=== PATIENT | female | born 1970 | race Caucasian/White ===

== ENCOUNTER 2025-03-11 11:51 | Observation (INO) | payer OTHER, SELFPAY ==
--- NOTE | ~2025-03-11 | CT_ITS ---
EXAMINATION: CT ABDOMEN PELVIS WITH IV CONTRAST HISTORY: nausea vomiting, diarrhea COMPARISON: There are no prior studies for available comparison. TECHNIQUE: CT scan of the abdomen and pelvis was performed following administration of 85 mL Omnipaque 350 using standard departmental protocol. Coronal and sagittal reformatted images were generated and reviewed. Oral contrast material was not administered at the request of the referring physician. This CT exam was performed with one or more of the following dose reduction techniques: automated exposure control, adjustment of the mA and/or kV according to patient size, use of iterative reconstruction technique. DLP: 328 mGy-cm FINDINGS: LOWER CHEST: The visualized lung bases are clear. There is no pleural effusion. CARDIOVASCULATURE: The heart is normal in size. There is no pericardial effusion. LIVER: The liver is normal in size and contour. There is periportal edema which is a nonspecific finding. No liver mass is identified. The hepatic and portal veins are patent. GALLBLADDER / BILE DUCTS: There is pericholecystic fluid. No calcified gallstones are identified.. There is no intra or extrahepatic biliary ductal dilatation. SPLEEN: The spleen is normal in size. No focal splenic lesion is identified. PANCREAS: The pancreas is unremarkable in appearance. ADRENAL GLANDS: Within normal limits. KIDNEYS/RETROPERITONEUM: No renal calculi are identified. There is no hydronephrosis. No renal masses are identified. LYMPH NODES: No abdominal or pelvic lymphadenopathy. VASCULATURE: The abdominal aorta is normal in caliber. MESENTERY/PERITONEUM: No free fluid. No masses. There is no free intraperitoneal gas. STOMACH: The stomach is collapsed, limiting evaluation. SMALL BOWEL: The small bowel is normal in caliber. COLON: The colon is completely collapsed, limiting evaluation. APPENDIX: Normal. URINARY BLADDER/PELVIC ORGANS: The urinary bladder is unremarkable. The uterus and ovaries are unremarkable. BONES / SOFT TISSUES: No suspicious bony or soft tissue abnormalities. CT/CT abdomen pelvis w IV con IMPRESSION: 1.Pericholecystic fluid and periportal edema. No calcified gallstones are identified. If there is clinical concern for acute cholecystitis, ultrasound could be performed. 2. The colon is completely collapsed, limiting evaluation. It is therefore difficult to exclude colitis. Electronically signed by: Howard Thao MD 03/11/2025 03:22 PM EST RP
--- NOTE | ~2025-03-11 | US_ITS ---
EXAMINATION: US ABDOMEN LIMITED CLINICAL INFORMATION: Elevated liver enzymes.. COMPARISON: Correlated to CT dated March 11, 2025. TECHNIQUE: Real-time ultrasound of the right upper quadrant abdomen using grayscale technique. FINDINGS: Limited examination. Gallbladder is contracted. No gross intraluminal abnormality. Gallbladder wall measures 8 mm. Trace of pericholecystic fluid. Common bile duct measures 3 mm. Liver measures 14 cm. coarse echotexture. Trace amount of ascites. US/US abdomen limited IMPRESSION: Concerning hepatocellular disease versus hepatitis resulting in all bladder wall thickening. Acalculous cholecystitis seems less likely. Ascites, small volume. Electronically signed by: Ty Tracey MD 03/12/2025 07:32 AM EST
--- NOTE | 2025-03-11 12:34 | ED.NAVMDI ---
HPI - Nausea/Vomiting/Diarrhea General Chief complaint: General Medical Stated complaint: vomiting Time Seen by Provider: 03/11/25 12:41 Source: patient Mode of arrival: ambulatory Limitations: no limitations History of Present Illness ED Provider: Dr. Jasmine [facility] Narrative: 54-year-old female presented hospital today for evaluation of nausea vomiting since 02:00. She has been having nausea vomiting and diarrhea. Her family is sick. Son recently diagnosed with COVID. She has no abdominal pain. However she has more than 10 at bedside of emesis since 02:00 last night. She is feels weak. Related Data Home Medications ?Medication ?Instructions ?Recorded ?Confirmed albuterol sulfate 90 mcg/actuation 2 puff inhalation Q4H PRN wheezing 03/11/25 03/11/25 aerosol inhaler (Ventolin HFA) diclofenac sodium 75 mg 75 mg PO BID PRN Pain 03/11/25 03/11/25 tablet,delayed release multivitamin 1 tab PO DAILY 03/11/25 03/11/25 Allergies Allergy/AdvReac Type Severity Reaction Status Date / Time No Known Allergies Allergy Verified 03/11/25 12:40 Review of Systems Review of Systems: Pertinent review of systems as mentioned in HPI. All other system otherwise negative. FOR[facility]LY [facility] Past Medical History [facility] Narrative: Medical history as mentioned in [facility] Social History Social History Patient Tobacco Use Status: Never used Tobacco Smoked in Last 30 Days: Yes Use of substances other than those prescribed or required for medical reasons: No Advance Directives: No Advance Directives Information Provided: Yes Physical Exam Exam: Exam: General: Pleasant, no distress, interacting appropriately Head: Normacephalic, atraumatic ENT: oral mucosa dry, neck supple, no tracheal deviation Cardiovascular: Bradycardia rate, regular rhythm, no murmurs, rubbing, gallops Respiratory: CTAB, no wheeze, rales, rhonchi Gastrointestinal: Soft, non distended, non tender, non guarding Extremities: No limb pain or swelling, no calf tenderness Neurological: Awake and alert, no facial droop noted Skin: Warm and dry Psychiatric: Appropriate mood and thoughts Vital Signs: Vital Signs: Last Vital Signs Temp 99.7 F 03/11/25 20:21 Pulse 54 03/11/25 20:21 Resp 16 03/11/25 20:21 BP 105/52 L 12/11/25 20:21 Pulse Ox 96 03/11/25 20:21 O2 Del Method Room Air 03/11/25 20:21 BMI result Body Mass Index 19.0 Course Course Course Narrative: This is an RME: Additional HPI, ROS, PE not included below will be deferred to primary provider. RME assessment and note performed by: Nanci Hercules PA-C This is [id number], with hx of asthma, who presents to the ER with complaints of nausea, vomiting. Had diarrhea 2 days ago, had cheeseburger drier and grinder tender last night and developed her symptoms early this morning. Patient found to be bradycardic, patient brought back. Plan: Labs, ekg Medications Administered Generic Name Dose Route Start Last Admin Trade Name Freq PRN Reason Stop Dose Admin Lactated Ringer's 1,000 mls @ 100 mls/hr 03/11/25 18:00 03/11/25 21:10 Lr IVCONT 100 mls/hr .Q10H HANH Administration Discontinued Medications Generic Name Dose Route Start Last Admin Trade Name Freq PRN Reason Stop Dose Admin Lactated Ringer's 1,000 mls @ 999 mls/hr 03/11/25 12:45 03/11/25 17:30 Lr IV 03/11/25 13:45 Infused .Q1H1M HANH Infusion Lactated Ringer's 1,000 mls @ 999 mls/hr 03/11/25 13:45 03/11/25 17:05 Lr IV 03/11/25 14:45 Infused .Q1H1M HANH Infusion Lactated Ringer's 1,000 mls @ 999 mls/hr 03/11/25 14:00 03/11/25 17:00 Lr IV 03/11/25 15:00 Infused .Q1H1M HANH Infusion Magnesium Sulfate 2 gm in 50 mls @ 50 mls/hr 03/11/25 13:47 03/11/25 15:38 Magnesium Sulfate/H2o IV 03/11/25 14:46 Infused ONCE ONE Infusion Metronidazole 500 mg in 100 mls @ 100 mls/hr 03/11/25 14:06 03/11/25 17:00 Flagyl IV 03/11/25 15:05 Infused ONCE ONE Infusion Iohexol 100 ml 03/11/25 14:50 03/11/25 14:50 Iohexol 350 Mg/Ml 100 Ml Infus..Btl IV 03/11/25 14:51 85 ml ONCE ONE Administration Metoclopramide HCl 5 mg 03/11/25 13:47 03/11/25 14:17 Metoclopramide Hcl 10 Mg/2 Ml Vial IV 03/11/25 13:48 5 mg ONCE ONE Administration Ondansetron HCl 4 mg 03/11/25 12:41 03/11/25 12:44 Ondansetron Hcl 4 Mg/2 Ml Vial IVPUSH 03/11/25 12:42 4 mg ONCE ONE Administration Medical Decision Making Medical Decision Making [facility] Narrative: 54-year-old female presented hospital today for nausea vomiting and diarrhea. At triage she was noted to have heart rate in the 36 use brought back. To the ER. Her heart rates between 40 and 60 on evaluation blood pressure is stable. Patient does appear to be nauseous. IV access obtained. Zofran given, bolus IV fluid be initiated. We will obtain lab work to assess for any signs of electrolyte abnormality. I did obtain EKG on patient. Patient does have signs of sinus bradycardia no sign of heart block. Troponin obtained, electrolytes will be assess. Lactic acid will be obtained as well. Viral swab will be obtained on the patient as well. Patient has a white count of 12.8. Left shift neutrophils 91.4. Patient's lactic acid is elevated at 3.1. Does have elevated bilirubin at 2.4. However she has no right upper quadrant abdominal pain no epigastric abdominal pain on exam. I do not think this is cholecystitis. Likely secondary to dehydration. Patient will be receiving additional bolus IV fluid here. UA did not show any signs of UTI. Viral swab negative for COVID flu RSV. She stated her nausea has improved. Given her laboratory findings we will obtain a CTA abdomen and pelvis. I have low suspicion for anything surgical. I think this is likely gastroenteritis versus colitis. Discussed with General Surgeon Dr. Barriga. Does not think his is cholecystitis as well. Will continue to monitor patient. CT imaging shows fluid around the gallbladder. However she has no right upper quadrant tenderness. Her lactic acid remains elevated at this time. I did give prophylactically IV Flagyl for in. Antibiotic coverage. We will plan to admit the patient has to hospital for severe dehydration and observation. Differential Diagnosis Differential Diagnoses: The differential diagnosis associated with the presentation includes Flu COVID, gastroenteritis, dehydration, nausea vomiting Lab Data MDM Lab Attestation statement: I reviewed the patient's lab results. 03/11/25 13:00 03/11/25 13:00 Labs: Lab Results 03/11/25 03/11/25 03/11/25 Range/Units 13:00 13:01 13:01 WBC 12.8 H (4.8-10.8) X10*3/uL RBC 4.20 (4.20-5.50) X10*6/uL Hgb 12.9 (12.0-16.0) g/dl Hct 38.7 (37.0-47.0) % MCV 92.1 (80.0-98.0) fL MCH 30.7 (27.0-33.0) pg MCHC 33.3 (31.0-35.0) g/dl RDW 13.2 (11.0-16.0) % Plt Count 189 (160-400) X10*3/uL MPV 10.2 (9.4-12.3) fL Immature Gran % (Auto) 0.4 (0.0-0.4) % Neut % (Auto) 91.4 H (45-73) % Lymph % (Auto) 6.3 L (20-40) % [place] % (Auto) 1.6 L (2-11) % Eos % (Auto) 0.1 (0-4) % Baso % (Auto) 0.2 (0-2) % Lymph # (Auto) 0.8 L (1.2-4.9) X10*3/uL [place] # (Auto) 0.2 (0.1-1.2) X10*3/uL Eos # (Auto) 0.0 (0.0-0.4) X10*3/uL Baso # (Auto) 0.0 (0.0-0.2) X10*3/uL Abs Immat Gran (auto) 0.05 H (0.00-0.03) X10*3/uL Absolute Neuts (auto) 11.7 H (2.0-8.3) x10*3/uL Absolute Nucleated RBC 0.000 (0.0-0.012) X10*3/uL Nucleated RBC % (auto) 0.0 (0.0-0.2) /100WBC Smear Tech's Comments VERIFIED Hold Purple Top SEE NOTE Hold Blue Top SEE NOTE SEE NOTE Sodium 140 (135-145) mmol/L Potassium 4.3 (3.3-5.1) mmol/L Chloride 109 H (96-108) mmol/L Carbon Dioxide 23 (22-29) mmol/L Anion Gap 12 (12-20) BUN 14 (9-16) mg/dL Creatinine 0.66 (0.5-1.4) mg/dL Estim Creat Clear Calc 81.0 Estimated GFR > 60 Random Glucose 157 H (60-115) mg/dL Lactic Acid 3.1 H* (0.5-2.0) mmol/L Lactic Acid F/U @ 2Hr (0.5-2.0) mmol/L Lactic Acid F/U @ 4Hr (0.5-2.0) mmol/L Calcium 9.4 (8.4-10.2) mg/dL Magnesium 1.5 L (1.6-2.6) mg/dL Total Bilirubin 2.4 H (0.0-1.0) mg/dL Direct Bilirubin 0.7 H (0.0-0.5) mg/dL AST 39 H (5-31) U/L ALT 23 (0-31) U/L Alkaline Phosphatase 60 (39-117) U/L Troponin I High Sens 3.4 (<3.5-17.0) ng/L Total Protein 7.2 (6.5-8.0) g/dL Albumin 5.1 H (3.5-5.0) g/dL Lipase 12 (8-78) U/L Urine Color Urine Appearance Urine pH (5.0-9.0) Ur Specific [place] (1.005-1.025) Urine Protein (Neg-Trace) mg/dL Urine Glucose (UA) (Negative) mg/dL Urine Ketones (Negative) mg/dL Urine Blood (Negative) Urine Nitrite (Negative) Ur Leukocyte Esterase (Negative) Urine RBC (0-2) /HPF Urine WBC (0-5) /HPF Ur Squamous Epith Cells (0-2) /HPF Urine Bacteria (None Seen) Hyaline Casts (0-2) /LPF Influenza Type A (PCR) NEGATIVE (Negative) Influenza Type B (PCR) NEGATIVE (Negative) RSV RNA Qual (PCR) NEGATIVE (Negative) SARS-CoV-2 RNA (RT-PCR) NEGATIVE (Negative) 03/11/25 03/11/25 03/11/25 Range/Units 13:49 15:14 17:40 WBC (4.8-10.8) X10*3/uL RBC (4.20-5.50) X10*6/uL Hgb (12.0-16.0) g/dl Hct (37.0-47.0) % MCV (80.0-98.0) fL MCH (27.0-33.0) pg MCHC (31.0-35.0) g/dl RDW (11.0-16.0) % Plt Count (160-400) X10*3/uL MPV (9.4-12.3) fL Immature Gran % (Auto) (0.0-0.4) % Neut % (Auto) (45-73) % Lymph % (Auto) (20-40) % [place] % (Auto) (2-11) % Eos % (Auto) (0-4) % Baso % (Auto) (0-2) % Lymph # (Auto) (1.2-4.9) X10*3/uL [place] # (Auto) (0.1-1.2) X10*3/uL Eos # (Auto) (0.0-0.4) X10*3/uL Baso # (Auto) (0.0-0.2) X10*3/uL Abs Immat Gran (auto) (0.00-0.03) X10*3/uL Absolute Neuts (auto) (2.0-8.3) x10*3/uL Absolute Nucleated RBC (0.0-0.012) X10*3/uL Nucleated RBC % (auto) (0.0-0.2) /100WBC Smear Tech's Comments Hold Purple Top Hold Blue Top Sodium (135-145) mmol/L Potassium (3.3-5.1) mmol/L Chloride (96-108) mmol/L Carbon Dioxide (22-29) mmol/L Anion Gap (12-20) BUN (9-16) mg/dL Creatinine (0.5-1.4) mg/dL Estim Creat Clear Calc Estimated GFR Random Glucose (60-115) mg/dL Lactic Acid (0.5-2.0) mmol/L Lactic Acid F/U @ 2Hr 3.0 H* (0.5-2.0) mmol/L Lactic Acid F/U @ 4Hr 1.7 (0.5-2.0) mmol/L Calcium (8.4-10.2) mg/dL Magnesium (1.6-2.6) mg/dL Total Bilirubin (0.0-1.0) mg/dL Direct Bilirubin (0.0-0.5) mg/dL AST (5-31) U/L ALT (0-31) U/L Alkaline Phosphatase (39-117) U/L Troponin I High Sens (<3.5-17.0) ng/L Total Protein (6.5-8.0) g/dL Albumin (3.5-5.0) g/dL Lipase (8-78) U/L Urine Color Yellow Urine Appearance Cloudy Urine pH >= 9.0 (5.0-9.0) Ur Specific [place] 1.020 (1.005-1.025) Urine Protein 30 (1+) H (Neg-Trace) mg/dL Urine Glucose (UA) Negative (Negative) mg/dL Urine Ketones 80 (Negative) mg/dL Urine Blood Negative (Negative) Urine Nitrite Negative (Negative) Ur Leukocyte Esterase Negative (Negative) Urine RBC 0-2 (0-2) /HPF Urine WBC 0-5 (0-5) /HPF Ur Squamous Epith Cells 0-2 (0-2) /HPF Urine Bacteria None Seen (None Seen) Hyaline Casts 0-2 (0-2) /LPF Influenza Type A (PCR) (Negative) Influenza Type B (PCR) (Negative) RSV RNA Qual (PCR) (Negative) SARS-CoV-2 RNA (RT-PCR) (Negative) Independent Interpretation I performed an independent interpretation of an: CT Scan Radiology Impression Discussion of test interpretation with radiology: I have reviewed the radiologist's reading. Critical Care Time Critical Care Time Critical Care Time: Yes Total Critical Care Time: 40 Attestation: Time is exclusive of separately billable procedures. Time includes: direct patient care, patient reassessment, coordination of patient care, interpretation of data (laboratory data, pulse oximetry, arterial blood gases and chest xrays), review of patient's medical records, medical consultation and documentation of patient care. Procedures excluded from critical care time: central intravenous line placement and electrocardiography. Discharge Plan Discharge Clinical Impression: Nausea and vomiting, Dehydration, severe Patient Disposition: Admitted As Inpatient Discharge Date/Time: 03/11/25 20:15
[2025-03-11 12:35] VITALS: BP 153/112; PULSE 36; RESP 20; TEMP 36.9; O2SAT 99; BMI 19.0
--- NOTE | 2025-03-11 12:41 | ECG_ITS ---
Test Reason : CP Blood Pressure : */* mmHG Vent. Rate : 44 BPM Atrial Rate : 44 BPM P-R Int : 124 ms QRS Dur : 82 ms QT Int : 498 ms P-R-T Axes : 76 79 83 degrees QTcB Int : 425 ms Marked sinus bradycardia Abnormal ECG No previous ECGs available Referred By: Nanci Hercules Electronically Signed By: JANE BERRY MD
--- NOTE | 2025-03-11 12:42 | PC.NURSE ---
Pt states she awoke at 0200 this am w/ n/v/d. Now here w/ symptomatic bradycardia
[2025-03-11] MEDS: Lactated Ringers 1,000 ML 999 ML IV ×3 (12:46→15:41)
[2025-03-11 13:08] LABS: Hematocrit 38.7 % (37.0-47.0); Hemoglobin 12.9 g/dl (12.0-16.0); Imm Gran Abs Auto 0.05 X10*3/uL (0.00-0.03); Imm Gran Pct Auto 0.4 % (0.0-0.4); Lymphocytes Absolute Auto 0.8 X10*3/uL (1.2-4.9); MANUAL DIFF FLAG SCAN; Mean Corpuscular HGB Conc 33.3 g/dl (31.0-35.0); Mean Corpuscular Hemoglobin 30.7 pg (27.0-33.0); Mean Corpuscular Volume 92.1 fL (80.0-98.0); NRBC Abs Auto 0.000 X10*3/uL (0.0-0.012); NRBC Pct Auto 0.0 /100WBC (0.0-0.2); Platelet Count 189 X10*3/uL (160-400); Red Blood Count 4.20 X10*6/uL (4.20-5.50); SCAN SMEAR FLAG 1; White Blood Count 12.8 X10*3/uL (4.8-10.8)
[2025-03-11 13:28] LABS: Alanine Aminotransferase 23 U/L (0-31); Albumin Level 5.1 g/dL (3.5-5.0); Alkaline Phosphatase 60 U/L (39-117); Anion Gap 12 (12-20); Aspartate Amino Transferase 39 U/L (5-31); Blood Urea Nitrogen 14 mg/dL (9-16); Calcium 9.4 mg/dL (8.4-10.2); Carbon Dioxide 23 mmol/L (22-29); Chloride 109 mmol/L (96-108); Creatinine Clr Calc Pharmacy 81.0; Estimated Glomerular Filt Rate > 60; Lipase 12 U/L (8-78); Magnesium 1.5 mg/dL (1.6-2.6); Potassium 4.3 mmol/L (3.3-5.1); Sodium 140 mmol/L (135-145); Total Protein 7.2 g/dL (6.5-8.0)
[2025-03-11 13:32] LABS: Troponin-I High Sensitivity 3.4 ng/L (<3.5-17.0)
[2025-03-11 13:55] LABS: Resp Syncy Virus RNA Qual PCR NEGATIVE (Negative); SARS COV2 PCR INHOUSE NEGATIVE (Negative)
[2025-03-11 13:58] LABS: Appearance Urine Cloudy; Glucose Urine UA Negative (Negative); PH >= 9.0 (5.0-9.0); Specific Gravity - Urine 1.020 (1.005-1.025); UMIC TRIGGER UACC YES
[2025-03-11 14:10] VITALS: BP 148/75; PULSE 44; RESP 12; TEMP 36.9; O2SAT 99
[2025-03-11] MEDS: Magnesium Sulfate/H2O 2 GM/50 ML PIGGYBACK IV (14:15)
[2025-03-11] MEDS: iohexoL 350 MG/ML 100 ML INFUS..BTL IV (14:50)
[2025-03-11 15:06] LABS: Reflex Lactate? Lactic Acid Added
[2025-03-11 15:36] LABS: ~Lactic Acid-LAB USE ONLY 3.0 mmol/L (0.5-2.0)
[2025-03-11] MEDS: metroNIDAZOLE/NS 500 MG/100 ML PIGGYBACK 100 MG IV (15:41)
[2025-03-11 17:17] LABS: Reflex Lactate? 2 Y
--- NOTE | 2025-03-11 17:54 | P.HPHOSP_ITS ---
History of Present Illness Date of Service: 03/11/25 Attending physician on admission: Gita Pulido Chief Complaint: nausea /vomiting 54 y/o F with no significant past medical history she came to the hospital because she is having nausea vomiting diarrhea 1 day duration-as per the patient she had multiple episodes of nausea vomiting as well as diarrhea since yesterday. She says that she was fine before that. She says that yesterday she ate double end production grinder, her symptoms started afterwards. Other family member also need ate it -no no family member is sick accept her. She said her son was recently had COVID 1-2 weeks back. She says her last bowel movement just before coming to the emergency room today. Denies any new complaint of chest pain or shortness of breath or abdominal pain or fever or chills. Denies any cough Denies any weakness or numbness. Lab imaging reviewed: Mild leukocytosis and elevated LFTs. CTA abdomen:1.Pericholecystic fluid and periportal edema. No calcified gallstones are identified. If there is clinical concern for acute cholecystitis, ultrasound could be performed. 2. The colon is completely collapsed, limiting evaluation. It is therefore difficult to exclude colitis. Review of Systems 2 Review of Systems: As above. Yes all other systems are reviewed and are negative PMFSH Social History Patient Tobacco Use Status: Never used Tobacco Smoked in Last 30 Days: Yes Use of substances other than those prescribed or required for medical reasons: No Advance Directives: No Advance Directives Information Provided: Yes Meds Allergies Allergy/AdvReac Type Severity Reaction Status Date / Time No Known Allergies Allergy Verified 03/11/25 12:40 Active Medications: Current Medications Lactated Ringer's (Lr) 1,000 mls @ 100 mls/hr IVCONT .Q10H HANH Physical Exam 2 Vital Signs and Narrative: Vital Signs: Last Vital Signs Temp 98.5 F 03/11/25 14:10 Pulse 44 L 03/11/25 14:10 Resp 12 03/11/25 14:10 BP 148/75 H 03/11/25 14:10 Pulse Ox 99 03/11/25 14:10 O2 Del Method Room Air 03/11/25 14:10 BMI result Body Mass Index 19.0 Appearance: Alert.? Oriented X3.? Feels weak and tired, cvs: rrr, [id number] , no murmur res: clear to auscultation ,no rhonchii or wheezing abd: no rebound or guarding ,nt, bs present. ext pulses present , no cyanosis . neuro: axo3 , nonfocal. Results Labs 03/11/25 13:00 03/11/25 13:00 Labs: Laboratory Results - last 24 hr 03/11/25 03/11/25 03/11/25 13:00 13:01 13:01 MCV 92.1 MCH 30.7 MCHC 33.3 RDW 13.2 Plt Count 189 MPV 10.2 Immature Gran % (Auto) 0.4 Neut % (Auto) 91.4 H Lymph % (Auto) 6.3 L [place] % (Auto) 1.6 L Eos % (Auto) 0.1 Baso % (Auto) 0.2 Lymph # (Auto) 0.8 L [place] # (Auto) 0.2 Eos # (Auto) 0.0 Baso # (Auto) 0.0 Abs Immat Gran (auto) 0.05 H Absolute Neuts (auto) 11.7 H Absolute Nucleated RBC 0.000 Nucleated RBC % (auto) 0.0 Smear Tech's Comments VERIFIED Hold Purple Top SEE NOTE Hold Blue Top SEE NOTE SEE NOTE Anion Gap 12 Estim Creat Clear Calc 81.0 Estimated GFR > 60 Random Glucose 157 H Lactic Acid 3.1 H* Lactic Acid F/U @ 2Hr Calcium 9.4 Magnesium 1.5 L Total Bilirubin 2.4 H Direct Bilirubin 0.7 H AST 39 H ALT 23 Alkaline Phosphatase 60 Troponin I High Sens 3.4 Total Protein 7.2 Albumin 5.1 H Lipase 12 Urine Color Urine Appearance Urine pH Ur Specific [place] Urine Protein Urine Glucose (UA) Urine Ketones Urine Blood Urine Nitrite Ur Leukocyte Esterase Urine RBC Urine WBC Ur Squamous Epith Cells Urine Bacteria Hyaline Casts Influenza Type A (PCR) NEGATIVE Influenza Type B (PCR) NEGATIVE RSV RNA Qual (PCR) NEGATIVE SARS-CoV-2 RNA (RT-PCR) NEGATIVE 03/11/25 03/11/25 13:49 15:14 MCV MCH MCHC RDW Plt Count MPV Immature Gran % (Auto) Neut % (Auto) Lymph % (Auto) [place] % (Auto) Eos % (Auto) Baso % (Auto) Lymph # (Auto) [place] # (Auto) Eos # (Auto) Baso # (Auto) Abs Immat Gran (auto) Absolute Neuts (auto) Absolute Nucleated RBC Nucleated RBC % (auto) Smear Tech's Comments Hold Purple Top Hold Blue Top Anion Gap Estim Creat Clear Calc Estimated GFR Random Glucose Lactic Acid Lactic Acid F/U @ 2Hr 3.0 H* Calcium Magnesium Total Bilirubin Direct Bilirubin AST ALT Alkaline Phosphatase Troponin I High Sens Total Protein Albumin Lipase Urine Color Yellow Urine Appearance Cloudy Urine pH >= 9.0 Ur Specific [place] 1.020 Urine Protein 30 (1+) H Urine Glucose (UA) Negative Urine Ketones 80 Urine Blood Negative Urine Nitrite Negative Ur Leukocyte Esterase Negative Urine RBC 0-2 Urine WBC 0-5 Ur Squamous Epith Cells 0-2 Urine Bacteria None Seen Hyaline Casts 0-2 Influenza Type A (PCR) Influenza Type B (PCR) RSV RNA Qual (PCR) SARS-CoV-2 RNA (RT-PCR) Imaging Radiologist's Impressions: Impressions Abdomen/Pelvis CT 03/11/25 14:50 IMPRESSION: 1.Pericholecystic fluid and periportal edema. No calcified gallstones are identified. If there is clinical concern for acute cholecystitis, ultrasound could be performed. 2. The colon is completely collapsed, limiting evaluation. It is therefore difficult to exclude colitis. Electronically signed by: Howard Thao MD 03/11/2025 03:22 PM [facility] Assessment and Plan (1) Nausea & vomiting: Qualifiers: Vomiting type: unspecified Qualified Code(s): R11.2 - Nausea with vomiting, unspecified Status: Acute Plan 54 y/o F with no significant past medical history she came to the hospital because she is having nausea vomiting diarrhea 1 day duration. Possible acute viral gastroenteritis versus food related? stool studies -cdiff ,gipanel RPP Blood cultures sent by ED plan: Continue hydration, antiemetics, monitor closely, we will avoid antibiotics for now because patient has no abdominal pain or fever -likely viral. Acute lactic acidosis: Due to above. Given IV fluid, improving, continue to monitor Elevated LFTs: Unclear etiology CTA abdomen:1.Pericholecystic fluid and periportal edema. No calcified gallstones are identified. If there is clinical concern for acute cholecystitis, ultrasound could be performed. 2. The colon is completely collapsed, limiting evaluation. It is therefore difficult to exclude colitis. Urine drug screen, added hepatitis screen liver us Smoking: Patient vapes-strongly advised to abstain from it. DVT prophylaxis: Low risk, advised ambulation Above management discussed with the patient in detail length she understand and in agreement with the above plan, time spent 70min, patient full code. Quality Stroke Does the patient have a stroke diagnosis?: No VTE Prior VTE?: No VTE Risk Level:: Medical - moderate - high VTE Device Contraindication: N/A - Device Ordered VTE Drug Contraindication: N/A - Med Ordered
[2025-03-11 18:05] LABS: ~Lactic Acid-LAB USE ONLY 1.7 mmol/L (0.5-2.0)
--- NOTE | 2025-03-11 19:36 | PHA.MEDREC ---
Pharmacy Consult ? Medication Reconciliation Pharmacy has completed the medication reconciliation. Spoke to patient at bedside
--- NOTE | 2025-03-11 19:38 | HO.NURTONUR ---
Pt came to ED c/o sudden onset n/v ever since 0200 this am. Initially at triage pt was thought to have symptomatic bradycardia but that myth has soon been debunked. Pt noted to have elevated lactic which was attributed to her vomiting. Pt tx'd w/ ivf and antiemetics. Pt never had cp or c/o abd pain. Bilirubin elevated slightly, CT inconclusive for cholecystitis, US tomorrow.
[2025-03-11 19:42] VITALS: BP 116/64; PULSE 79; RESP 16; TEMP 37; O2SAT 97
[2025-03-11 20:17] VITALS: BMI 19.0
[2025-03-11 20:21] VITALS: BP 105/52; PULSE 54; RESP 16; TEMP 37.6; O2SAT 96
[2025-03-11] MEDS: Lactated Ringers 1,000 ML 100 ML IVCONT (21:10)
[2025-03-11 21:12] LABS: Cannabinoid Screen Urine POSITIVE (Not Detect)
[2025-03-11 23:42] VITALS: BP 142/58; PULSE 71; RESP 16; TEMP 37.6; O2SAT 96
[2025-03-12 03:31] VITALS: BP 118/54; PULSE 80; RESP 16; TEMP 37.4; O2SAT 94
[2025-03-12 06:28] LABS: Hematocrit 33.6 % (37.0-47.0); Hemoglobin 11.5 g/dl (12.0-16.0); Mean Corpuscular HGB Conc 34.2 g/dl (31.0-35.0); Mean Corpuscular Hemoglobin 31.1 pg (27.0-33.0); Mean Corpuscular Volume 90.8 fL (80.0-98.0); NRBC Abs Auto 0.000 X10*3/uL (0.0-0.012); NRBC Pct Auto 0.0 /100WBC (0.0-0.2); Platelet Count 155 X10*3/uL (160-400); Red Blood Count 3.70 X10*6/uL (4.20-5.50); White Blood Count 9.5 X10*3/uL (4.8-10.8)
[2025-03-12 06:51] LABS: Alanine Aminotransferase 19 U/L (0-31); Albumin Level 4.0 g/dL (3.5-5.0); Alkaline Phosphatase 45 U/L (39-117); Anion Gap 8 (12-20); Aspartate Amino Transferase 34 U/L (5-31); Blood Urea Nitrogen 12 mg/dL (9-16); Calcium 8.5 mg/dL (8.4-10.2); Carbon Dioxide 26 mmol/L (22-29); Chloride 113 mmol/L (96-108); Creatinine Clr Calc Pharmacy 87.8; Estimated Glomerular Filt Rate > 60; Potassium 3.9 mmol/L (3.3-5.1); Sodium 143 mmol/L (135-145); Total Protein 5.9 g/dL (6.5-8.0)
[2025-03-12 07:32] VITALS: BP 114/57; PULSE 54; RESP 16; TEMP 36.7; O2SAT 97
[2025-03-12 08:33] LABS: Hepatitis A Antibody IgM 0.14 Index (0-0.79); ~Hepatitis A Antibody IgM Nonreactive (Nonreactive)
[2025-03-12 08:39] LABS: HBS Num1 37.50 mIU/mL (0-7.99); HBc Num1 0.06 S/CO (0.00-0.79); HBsAGNum1 0.68 S/CO (0.00-0.99); Hepatitis B Surface Antigen Negative (Negative); ~HepC Num1 0.06 S/CO (0.00-0.79); ~Hepatitis B Surface Antibody REACTIVE (Nonreactive); ~Hepatitis C Antibody Nonreactive (Nonreactive)
[2025-03-12 09:03] VITALS: BP 124/59; PULSE 85; RESP 16; TEMP 36.8; O2SAT 95
[2025-03-12 10:39] LABS: Chlamydia pneumoniae PCR Not Detected (Not Detect.); Coronavirus 229E PCR Not Detected (Not Detect.); Coronavirus HKU1 PCR Not Detected (Not Detect.); Coronavirus NL63 PCR Not Detected (Not Detect.); Coronavirus OC43 PCR Not Detected (Not Detect.); RSV PCR Not Detected (Not Detect.); Rhino/Enterovirus PCR Not Detected (Not Detect.)
[2025-03-12 10:59] LABS: Influenza A H1 PCR Not Detected (Not Detect.); Influenza A H1-2009 PCR Not Detected (Not Detect.); Influenza A H3 PCR Not Detected (Not Detect.); SARS-CoV-2 PCR Not Detected (Not Detect.)
--- NOTE | 2025-03-12 11:28 | P.DS_ITS ---
DS: Providers Provider Date of admission: 03/11/25 17:44 Date of discharge: 03/12/25 Primary care physician: Keturah Anderson MD Attending physician on discharge: Gita Pulido Discharging clinician: Gita Pulido DS: Diagnosis Discharge Diagnosis (1) Nausea & vomiting: Status: Acute DS: Summary Hospital Course Hospital Course: HPI:54 y/o F with no significant past medical history she came to the hospital because she is having nausea vomiting diarrhea 1 day duration-as per the patient she had multiple episodes of nausea vomiting as well as diarrhea since yesterday. She says that she was fine before that. She says that yesterday she ate paint grinder, her symptoms started afterwards. Other family member also need ate it -no no family member is sick accept her. She said her son was recently had COVID 1-2 weeks back. She says her last bowel movement just before coming to the emergency room today. Denies any new complaint of chest pain or shortness of breath or abdominal pain or fever or chills. Denies any cough Denies any weakness or numbness. Lab imaging reviewed: Mild leukocytosis and elevated LFTs. CTA abdomen:1.Pericholecystic fluid and periportal edema. No calcified gallstones are identified. If there is clinical concern for acute cholecystitis, ultrasound could be performed. 2. The colon is completely collapsed, limiting evaluation. It is therefore difficult to exclude colitis. Hospital course: 54 y/o F with no significant past medical history she came to the hospital because she is having nausea vomiting diarrhea 1 day duration: Patient possibly admitted for viral gastroenteritis versus food related: Respiratory viral panel negative, blood culture sent, started on hydration, antiemetics and patient was monitored closely: With the above management patient seems to be improved significantly. Blood cultures still pending, low suspicion for infection, we will defer antibiotics, if any blood culture comes positive -will call patient back. Her symptoms are resolved, diarrhea also resolved. LFTs: Hepatitis screen APC seems fine, has Hbsab positive. Abdominal ultrasound:Concerning hepatocellular disease versus hepatitis resulting in all bladder wall thickening. Acalculous cholecystitis seems less likely.Ascites, small volume. Patient is currently asymptomatic, we will defer further management for liver enzymes and hepatic disease outpatient with the PCP, her LFTs are somewhat improving. Hypomagnesemia: Due to diarrhea above. Diarrhea resolved, p.o. intake improving, added p.o. magnesium limited supply for 2 weeks. plan: Possible viral gastroenteritis and dehydration: Given IV hydration, antiemetics: Seems to be improved significantly. Respiratory viral panel negative, diarrhea resolved. mild eleavted lft's improving -hapatitis a,b,c serology done -seems fine , moniter lft;s outpatient and further workup outpatient. hypomagnesmia -added po magnesium , moniter magnesium levels outpatient with pcp. Patient was strongly advised to abstain from marijuana use. Blood cultures are pending but patient is low suspicion for infection, we will defer antibiotics. Patient is in agreement with that plan. Above management discussed with the patient in detail length as well as her daughter at bedside-they both understand and in agreement with the above plan, time spent 50 minute. Time Attestation Total time managing care of this patient today: 45 mintues. Discharge Coordination Time (in mins): 45min Quality: Safe Use of Opioids Does Pt have an Active Cancer Diagnosis on the Problem List?: No Quality: Stroke Does the patient have a stroke diagnosis?: No Physical Exam Exam: Exam: Appearance: Alert.? Oriented X3.? Feels weak and tired, cvs: rrr, [id number] , no murmur res: clear to auscultation ,no rhonchii or wheezing abd: no rebound or guarding ,nt, bs present. ext pulses present , no cyanosis . neuro: axo3 , nonfocal. Vital Signs: Vital Signs: Last Vital Signs Temp 98.3 F 03/12/25 09:03 Pulse 85 03/12/25 09:03 Resp 16 03/12/25 09:03 BP 124/59 L 03/12/25 09:03 Pulse Ox 95 03/12/25 09:03 O2 Del Method Room Air 03/12/25 09:03 BMI result Body Mass Index 19.0 DS: Data Data Completed and Pending Labs on day of discharge: Laboratory Results - last 24 hr 03/11/25 03/11/25 03/11/25 13:00 13:01 13:01 WBC 12.8 H RBC 4.20 Hgb 12.9 Hct 38.7 MCV 92.1 MCH 30.7 MCHC 33.3 RDW 13.2 Plt Count 189 MPV 10.2 Immature Gran % (Auto) 0.4 Neut % (Auto) 91.4 H Lymph % (Auto) 6.3 L [place] % (Auto) 1.6 L Eos % (Auto) 0.1 Baso % (Auto) 0.2 Lymph # (Auto) 0.8 L [place] # (Auto) 0.2 Eos # (Auto) 0.0 Baso # (Auto) 0.0 Abs Immat Gran (auto) 0.05 H Absolute Neuts (auto) 11.7 H Absolute Nucleated RBC 0.000 Nucleated RBC % (auto) 0.0 Smear Tech's Comments VERIFIED Hold Purple Top SEE NOTE Hold Blue Top SEE NOTE SEE NOTE Sodium 140 Potassium 4.3 Chloride 109 H Carbon Dioxide 23 Anion Gap 12 BUN 14 Creatinine 0.66 Estim Creat Clear Calc 81.0 Estimated GFR > 60 Random Glucose 157 H Lactic Acid 3.1 H* Lactic Acid F/U @ 2Hr Lactic Acid F/U @ 4Hr Calcium 9.4 Magnesium 1.5 L Total Bilirubin 2.4 H Direct Bilirubin 0.7 H AST 39 H ALT 23 Alkaline Phosphatase 60 Troponin I High Sens 3.4 Total Protein 7.2 Albumin 5.1 H Lipase 12 Urine Color Urine Appearance Urine pH Ur Specific [place] Urine Protein Urine Glucose (UA) Urine Ketones Urine Blood Urine Nitrite Ur Leukocyte Esterase Urine RBC Urine WBC Ur Squamous Epith Cells Urine Bacteria Hyaline Casts Urine Opiates Screen Ur Buprenorphine Scrn Ur Oxycodone Screen Urine Methadone Screen Urine Fentanyl Screen Ur Barbiturates Screen Ur Phencyclidine Scrn Ur Amphetamines Screen U Benzodiazepines Scrn Urine Cocaine Screen U Marijuana (THC) Screen Respiratory Panel Jacome Adenovirus (Rapid PCR) B.pert (TEM-PCR) B.parapertussis DNA PCR C. pneumoniae DNA (PCR) Coronavirus OC43 (PCR) Coronavirus HKU1 (PCR) Coronavirus 229E (PCR) Coronavirus NL63 (PCR) Hepatitis A IgM Ab Hep Bs Antigen Hep Bs Antibody Hep B Core Total Ab Hepatitis C Ab (EIA) Human Metapneumovir PCR Influenza A (RT-PCR) Influenza A (H1) PCR Influ A (H1/09) PCR Influenza A (H3) PCR Influenza Type A (PCR) NEGATIVE Influenza B (RT-PCR) Influenza Type B (PCR) NEGATIVE M. pneumoniae (PCR) Parainfluenza 1 (PCR) Parainfluenza 2 (PCR) Parainfluenza 3 (PCR) Parainfluenza 4 (PCR) RSV (PCR) RSV RNA Qual (PCR) NEGATIVE Entero/Rhino (PCR) SARS-CoV-2 RNA (RT-PCR) NEGATIVE 03/11/25 03/11/25 03/11/25 13:49 15:14 17:40 WBC RBC Hgb Hct MCV MCH MCHC RDW Plt Count MPV Immature Gran % (Auto) Neut % (Auto) Lymph % (Auto) [place] % (Auto) Eos % (Auto) Baso % (Auto) Lymph # (Auto) [place] # (Auto) Eos # (Auto) Baso # (Auto) Abs Immat Gran (auto) Absolute Neuts (auto) Absolute Nucleated RBC Nucleated RBC % (auto) Smear Tech's Comments Hold Purple Top Hold Blue Top Sodium Potassium Chloride Carbon Dioxide Anion Gap BUN Creatinine Estim Creat Clear Calc Estimated GFR Random Glucose Lactic Acid Lactic Acid F/U @ 2Hr 3.0 H* Lactic Acid F/U @ 4Hr 1.7 Calcium Magnesium Total Bilirubin Direct Bilirubin AST ALT Alkaline Phosphatase Troponin I High Sens Total Protein Albumin Lipase Urine Color Yellow Urine Appearance Cloudy Urine pH >= 9.0 Ur Specific [place] 1.020 Urine Protein 30 (1+) H Urine Glucose (UA) Negative Urine Ketones 80 Urine Blood Negative Urine Nitrite Negative Ur Leukocyte Esterase Negative Urine RBC 0-2 Urine WBC 0-5 Ur Squamous Epith Cells 0-2 Urine Bacteria None Seen Hyaline Casts 0-2 Urine Opiates Screen Ur Buprenorphine Scrn Ur Oxycodone Screen Urine Methadone Screen Urine Fentanyl Screen Ur Barbiturates Screen Ur Phencyclidine Scrn Ur Amphetamines Screen U Benzodiazepines Scrn Urine Cocaine Screen U Marijuana (THC) Screen Respiratory Panel Jacome Adenovirus (Rapid PCR) B.pert (TEM-PCR) B.parapertussis DNA PCR C. pneumoniae DNA (PCR) Coronavirus OC43 (PCR) Coronavirus HKU1 (PCR) Coronavirus 229E (PCR) Coronavirus NL63 (PCR) Hepatitis A IgM Ab Hep Bs Antigen Hep Bs Antibody Hep B Core Total Ab Hepatitis C Ab (EIA) Human Metapneumovir PCR Influenza A (RT-PCR) Influenza A (H1) PCR Influ A (H1/09) PCR Influenza A (H3) PCR Influenza Type A (PCR) Influenza B (RT-PCR) Influenza Type B (PCR) M. pneumoniae (PCR) Parainfluenza 1 (PCR) Parainfluenza 2 (PCR) Parainfluenza 3 (PCR) Parainfluenza 4 (PCR) RSV (PCR) RSV RNA Qual (PCR) Entero/Rhino (PCR) SARS-CoV-2 RNA (RT-PCR) 03/11/25 03/11/25 03/11/25 18:26 20:48 20:50 WBC RBC Hgb Hct MCV MCH MCHC RDW Plt Count MPV Immature Gran % (Auto) Neut % (Auto) Lymph % (Auto) [place] % (Auto) Eos % (Auto) Baso % (Auto) Lymph # (Auto) [place] # (Auto) Eos # (Auto) Baso # (Auto) Abs Immat Gran (auto) Absolute Neuts (auto) Absolute Nucleated RBC Nucleated RBC % (auto) Smear Tech's Comments Hold Purple Top Hold Blue Top Sodium Potassium Chloride Carbon Dioxide Anion Gap BUN Creatinine Estim Creat Clear Calc Estimated GFR Random Glucose Lactic Acid Lactic Acid F/U @ 2Hr Lactic Acid F/U @ 4Hr Calcium Magnesium Total Bilirubin Direct Bilirubin AST ALT Alkaline Phosphatase Troponin I High Sens Total Protein Albumin Lipase Urine Color Urine Appearance Urine pH Ur Specific [place] Urine Protein Urine Glucose (UA) Urine Ketones Urine Blood Urine Nitrite Ur Leukocyte Esterase Urine RBC Urine WBC Ur Squamous Epith Cells Urine Bacteria Hyaline Casts Urine Opiates Screen Not Detected Ur Buprenorphine Scrn Not Detected Ur Oxycodone Screen Not Detected Urine Methadone Screen Not Detected Urine Fentanyl Screen Not Detected Ur Barbiturates Screen Not Detected Ur Phencyclidine Scrn Not Detected Ur Amphetamines Screen Not Detected U Benzodiazepines Scrn Not Detected Urine Cocaine Screen Not Detected U Marijuana (THC) Screen POSITIVE H Respiratory Panel Jacome See Note Adenovirus (Rapid PCR) Not Detected B.pert (TEM-PCR) Not Detected B.parapertussis DNA PCR Not Detected C. pneumoniae DNA (PCR) Not Detected Coronavirus OC43 (PCR) Not Detected Coronavirus HKU1 (PCR) Not Detected Coronavirus 229E (PCR) Not Detected Coronavirus NL63 (PCR) Not Detected Hepatitis A IgM Ab Nonreactive Hep Bs Antigen Negative Hep Bs Antibody REACTIVE Hep B Core Total Ab Nonreactive Hepatitis C Ab (EIA) Nonreactive Human Metapneumovir PCR Not Detected Influenza A (RT-PCR) Not Detected Influenza A (H1) PCR Not Detected Influ A (H1/09) PCR Not Detected Influenza A (H3) PCR Not Detected Influenza Type A (PCR) Influenza B (RT-PCR) Not Detected Influenza Type B (PCR) M. pneumoniae (PCR) Not Detected Parainfluenza 1 (PCR) Not Detected Parainfluenza 2 (PCR) Not Detected Parainfluenza 3 (PCR) Not Detected Parainfluenza 4 (PCR) Not Detected RSV (PCR) Not Detected RSV RNA Qual (PCR) Entero/Rhino (PCR) Not Detected SARS-CoV-2 RNA (RT-PCR) Not Detected 03/12/25 06:00 WBC 9.5 RBC 3.70 L Hgb 11.5 L Hct 33.6 L MCV 90.8 MCH 31.1 MCHC 34.2 RDW 13.4 Plt Count 155 L MPV 10.3 Immature Gran % (Auto) Neut % (Auto) Lymph % (Auto) [place] % (Auto) Eos % (Auto) Baso % (Auto) Lymph # (Auto) [place] # (Auto) Eos # (Auto) Baso # (Auto) Abs Immat Gran (auto) Absolute Neuts (auto) Absolute Nucleated RBC 0.000 Nucleated RBC % (auto) 0.0 Smear Tech's Comments Hold Purple Top Hold Blue Top Sodium 143 Potassium 3.9 Chloride 113 H Carbon Dioxide 26 Anion Gap 8 L BUN 12 Creatinine 0.61 Estim Creat Clear Calc 87.8 Estimated GFR > 60 Random Glucose 93 Lactic Acid Lactic Acid F/U @ 2Hr Lactic Acid F/U @ 4Hr Calcium 8.5 D Magnesium Total Bilirubin 2.2 H Direct Bilirubin AST 34 H ALT 19 Alkaline Phosphatase 45 Troponin I High Sens Total Protein 5.9 L Albumin 4.0 Lipase Urine Color Urine Appearance Urine pH Ur Specific [place] Urine Protein Urine Glucose (UA) Urine Ketones Urine Blood Urine Nitrite Ur Leukocyte Esterase Urine RBC Urine WBC Ur Squamous Epith Cells Urine Bacteria Hyaline Casts Urine Opiates Screen Ur Buprenorphine Scrn Ur Oxycodone Screen Urine Methadone Screen Urine Fentanyl Screen Ur Barbiturates Screen Ur Phencyclidine Scrn Ur Amphetamines Screen U Benzodiazepines Scrn Urine Cocaine Screen U Marijuana (THC) Screen Respiratory Panel [place] Adenovirus (Rapid PCR) B.pert (TEM-PCR) B.parapertussis DNA PCR C. pneumoniae DNA (PCR) Coronavirus OC43 (PCR) Coronavirus HKU1 (PCR) Coronavirus 229E (PCR) Coronavirus NL63 (PCR) Hepatitis A IgM Ab Hep Bs Antigen Hep Bs Antibody Hep B Core Total Ab Hepatitis C Ab (EIA) Human Metapneumovir PCR Influenza A (RT-PCR) Influenza A (H1) PCR Influ A (H1/09) PCR Influenza A (H3) PCR Influenza Type A (PCR) Influenza B (RT-PCR) Influenza Type B (PCR) M. pneumoniae (PCR) Parainfluenza 1 (PCR) Parainfluenza 2 (PCR) Parainfluenza 3 (PCR) Parainfluenza 4 (PCR) RSV (PCR) RSV RNA Qual (PCR) Entero/Rhino (PCR) SARS-CoV-2 RNA (RT-PCR) Imaging Chest x-ray: Radiologist's impression: ITS Impressions Abdomen/Pelvis CT 03/11/25 14:50 IMPRESSION: 1.Pericholecystic fluid and periportal edema. No calcified gallstones are identified. If there is clinical concern for acute cholecystitis, ultrasound could be performed. 2. The colon is completely collapsed, limiting evaluation. It is therefore difficult to exclude colitis. Abdomen Ultrasound 03/11/25 18:04 IMPRESSION: Concerning hepatocellular disease versus hepatitis resulting in all bladder wall thickening. Acalculous cholecystitis seems less likely. Ascites, small volume. Discharge Plan Discharge Anticipated Discharge Date/Time: 03/12/25 11:19 Patient Disposition: Home, Self-Care Discharge Diagnosis: Intractable nausea vomiting Referrals: Keturah Anderson MD [Primary Care Provider, [facility]] - 1 Week Discharge Medications: New magnesium 200 mg tablet 200 mg PO DAILY Qty: 14 0RF Continued multivitamin Tablet 1 tab PO DAILY diclofenac sodium 75 mg tablet,delayed release (DR/EC) 75 mg PO BID PRN (Reason: Pain) albuterol sulfate [Ventolin HFA] 90 mcg/actuation HFA aerosol inhaler 2 puff inhalation Q4H PRN (Reason: wheezing) Discharge Orders: Discharge Order (Routine); Ordered 03/12/25 Ordered By: Gita Pulido Diet: Advance to usual diet Activity on Discharge: As tolerated Stand Alone Forms: Patient Portal Discharge page Print Language: Setswana Care Plan Goals: Possible viral gastroenteritis and dehydration: Given IV hydration, antiemetics: Seems to be improved significantly. Respiratory viral panel negative, diarrhea resolved. mild eleavted lft's improving -hapatitis a,b,c serology done -seems fine , moniter lft;s outpatient and further workup outpatient. hypomagnesmia -added po magnesium , moniter magnesium levels outpatient with pcp. Patient was strongly advised to abstain from marijuana use. Blood cultures are pending but patient is low suspicion for infection, we will defer antibiotics. Patient is in agreement with that plan. Health Concerns: As above. Plan of Treatment: As above. Assessment: As above. Discharge Date/Time: 03/12/25 12:48
[2025-03-12 11:50] VITALS: BP 124/59; PULSE 85; RESP 16; TEMP 36.8; O2SAT 95
--- NOTE | 2025-03-12 12:17 | MHC.CM.PN ---
PT REPORTS SHE LIVES WITH HER SON AND IS INDEPENDENT WITH CARE SHE HAS NO SERVICES OR DME COPY OF HCP AT [facility] [place] RE[place] PCP: MICHAEL JEFFRIES OBSERVATION NOTICE DELIVERED PT CLEARED TO [facility] SELF CARE TODAY PT ARRANGED TRANSPORT
== END 2025-03-12 12:48 | disposition home or self-care (01) ==
LOC: HO.ED 14:37 → HO.S3 20:12 → HO.EDOVER 04-23 09:40 → HO.S3 04-23 09:40
PROVIDERS: Physician Assistant Medical; Admitting Provider Internal Medicine Cardiovascular Disease; Emergency Provider Student in an Organized Health Care Education/Training Program; PCP Student in an Organized Health Care Education/Training Program; Visit Provider Internal Medicine
DX: R11.2 Nausea with vomiting, unspecified (principal); R19.7 Diarrhea, unspecified; E86.0 Dehydration; R74.01 Elevation of levels of liver transaminase levels; E83.42 Hypomagnesemia; E87.20 Acidosis, unspecified; D72.829 Elevated white blood cell count, unspecified; R07.9 Chest pain, unspecified; Z79.899 Other long term (current) drug therapy; Z03.818 Encounter for observation for suspected exposure to other biological agents ruled out; Z51.81 Encounter for therapeutic drug level monitoring
CPT/HCPCS: 36415; 74177; 76705; 80048; 80053; 80076; 80307; 81001; 81003; 83605; 83690; 83735; 84484; 85025; 85027; 86704; 86706; 86709; 86803; 87040; 87340; 87633; 87637; 93005; 96361; 96365; 96367; 96375; 99221; 99285; J1836; J2405; J2765; J3475; J7120; Q9967

== ENCOUNTER → 2025-03-11 12:41 | Outpatient (BNV) | payer OTHER, SELFPAY | PROVIDERS: Emergency Provider Student in an Organized Health Care Education/Training Program; PCP Student in an Organized Health Care Education/Training Program; Visit Provider Internal Medicine Cardiovascular Disease | DX: R00.1 Bradycardia, unspecified (principal) | CPT/HCPCS: 93010 ==

== ENCOUNTER → 2025-03-11 12:53 | Outpatient (BNV) | payer OTHER, SELFPAY | PROVIDERS: Emergency Provider Student in an Organized Health Care Education/Training Program; PCP Student in an Organized Health Care Education/Training Program; Visit Provider Internal Medicine | DX: R11.2 Nausea with vomiting, unspecified (principal) | CPT/HCPCS: 99222; 99239 ==

== ENCOUNTER → 2025-03-11 14:04 | Outpatient (BNV) | payer OTHER, SELFPAY | PROVIDERS: Emergency Provider Student in an Organized Health Care Education/Training Program; PCP Student in an Organized Health Care Education/Training Program; Visit Provider Radiology Diagnostic Radiology | DX: R94.5 Abnormal results of liver function studies (principal); R18.8 Other ascites | CPT/HCPCS: 74177; 76705 ==